=== PATIENT | male | born 1985 | race Two or more races ===

== ENCOUNTER 2024-04-14 20:36 | Emergency (ER) | payer OTHER ==
[~2024-04-14] VITALS: Ht 177.8 cm; Wt 77.1 kg
[2024-04-14 22:41] VITALS: BP 110/73; PULSE 102; RESP 18; TEMP 98.5; O2SAT 100
[2024-04-14] MEDS ORDERED: ACET500T58 PO (22:46)
[2024-04-14] MEDS ORDERED: BACDST PO (22:46)
--- NOTE | 2024-04-14 22:46 | ED.PDOC ---
History of Present Illness(SKN HPI Comments 38 YEAR OLD MALE PRESENTS TO ER FOR WOUND CHECK. PATIENT REPORTS HE STARTED EXPERIENCING REDNESS/PAIN/SWELLING TO RIGHT LOWER BUTTOCK EIGHT DAYS AGO WITH ASSOCIATED INTERMITTENT BLOODY DRAINAGE TO THIS REGION X FOUR DAYS AND PRESENTS TO ER TODAY FOR WOUND CHECK. 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 DENIES ANY CURRENT PAIN. PATIENT PRESENTS TO ER AMBULATORY ON ARRIVAL, WITH STEADY GAIT, IN NO DISTRESS. DENIES FEVER, BODY ACHES, CHILLS, NIGHT SWEATS, ABDOMINAL/PELVIC PAIN, CHANGES IN BM OR ANY FURTHER SYMPTOMS/COMPLAINTS Chief Complaint: Abscess Time Seen by MD: 20:54 Primary Care Provider: UNKNOWN History of Present Illness: Nurses Notes, Medications, Allergies Allergies: Coded Allergies: NO KNOWN ALLERGIES (Unverified , 04/14/24) Home Meds Active Scripts Acetaminophen (Acetaminophen) 500 Mg Tab, 500 MG PO Q4HPRN, #30 TAB 0 Refills Prov:BRANDAN PATEL 04/14/24 Sulfamethoxazole W/Trimethopri (Bactrim Ds Tablet) 1 Tab Tb, 1 TAB PO BID for 7 Days, #14 TAB 0 Refills Prov:BRANDAN PATEL 04/14/24 Information Source: Patient Mode of Arrival: Ambulatory Tetanus: UTD Past Medical History PAST MEDICAL HISTORY: Denies Surgical History (Other): LEFT LEG SURGERY RIGHT HAND SURGERY Family History Family History: Unknown Social History Smoker: Non-Smoker Alcohol: Denies ETOH Use Drugs: Marijuana Lives In: Home Constitutional: denies: chills, diaphoresis, fatigue, fever, malaise, sweats, weakness, others EENTM: denies: blurred vision, double vision, ear bleeding, ear discharge, ear drainage, ear pain, ear ringing, eye pain, eye redness, hearing loss, mouth pain, mouth swelling, nasal discharge, nose bleeding, nose congestion, nose pain, photophobia, tearing, throat pain, throat swelling, voice changes, others Respiratory: denies: cough, hemoptysis, orthopnea, SOB at rest, shortness of breath, SOB with excertion, stridor, wheezing, others Cardiovascular: denies: chest pain, dizzy spells, diaphoresis, Dyspnea on exertion, edema, irregular heart beat, left arm pain, lightheadedness, palpitations, PND, syncope, others Gastrointestinal: denies: abdomen distended, abdominal pain, blood streaked bowels, constipated, diarrhea, dysphagia, difficulty swallowing, hematemesis, melena, nausea, poor appetite, poor fluid intake, rectal bleeding, rectal pain, vomiting, others Genitourinary: denies: burning, dysuria, flank pain, frequency, hematuria, incontinence, penile discharge, penile sore, pain, testicle pain, testicle swelling, urgency, others Neurological: denies: dizziness, fainting, headache, left sided numbness, left sided weakness, numbness, paresthesia, pre-existing deficit, right sided numbness, right sided weakness, seizure, speech problems, tingling, tremors, weakness, others Musculoskeletal: denies: back pain, gout, joint pain, joint swelling, muscle pain, muscle stiffness, neck pain, others Integumetry: reports: others ( STATED IN HPI) Allergic/Immunocompromised: denies: Difficulty Healing, Frequent Infections, Hives, Itching, others Hematologic/Lymphatic: denies: anemia, blood clots, easy bleeding, easy bruising, swollen glands, others Endocrine: denies: excessive hunger, excessive sweating, excessive thirst, excessive urination, flushing, intolerance to cold, intolerance to heat, unexplained weight gain, unexplained weight loss, others Psychiatric: denies: anxiety, bipolar disorder, depression, hopeless, panic disorder, schizophrenia, sleepless, suicidal, others Physical Exam General Appearance: No Apparent Distress HEENT: PERRL/EOMI Neck: Full Range of Motion, Non-Tender, Normal Respiratory: Chest Non-Tender, Lungs Clear, No Accessory Muscle Use, No Respiratory Distress, Normal Breath Sounds Cardiovascular: No Murmur, No Gallop, Regular Rate/Rhythm Breast Exam: Deferred Gastrointestinal: Non Tender, No Pulsatile Mass, Soft Genitalia: Deferred Pelvic: Deferred Rectal: Deferred Extremities: Normal capillary refill, Normal range of motion Neurologic: Alert, lamina searcher II-XII nml as Tested, No Motor Deficits, Normal Affect, Normal Mood, No Sensory Deficits Cerebellar Function: Normal Reflexes: Normal Skin: Dry, Warm Peripheral Pulses: 2+ femoral (R), 2+ femoral (L) Lymphatic: No Adenopathy Was a procedure done? Was a procedure done?: No Sedation Sedation?: No Images 1 - MILD SWELLING/ERYTHEMA/TTP CENTRALIZED TO RIGHT LOWER BUTTOCK WITHOUT DRAINAGE. NO FLUCTUANCE NOTED. GAIT INTACT WITHOUT ABNORMALITY Differential Diagnosis (INTG) Differential Diagnosis: Abscess Differential Diagnosis: Abrasion Differential Diagnosis: Puncture Wound, Retained Foreign Body X-Ray, Labs, Meds, VS Vital Signs Date Time Temp Pulse Resp B/P (MAP) Pulse Ox O2 Delivery O2 Flow Rate FiO2 04/14/24 22:41 102 18 100 Room Air 04/14/24 22:41 98.5 102 18 110/73 (85) 100 98.5 04/14/24 20:45 98.5 102 18 110/73 (85) 100 ROCEPHIN 1 G IM ORDERED WOUND CARE/CLEANING DISCUSSED AND ADVISED ADVISED TO FOLLOW UP IN FOUR DAYS FOR WOUND CHECK ADVISED TO FOLLOW UP WITH PCP IN 1-2 DAYS PATIENT VERBALIZED UNDERSTANDING AND AGREEABLE WITH CURRENT PLAN OF CARE ADVISED TO RETURN TO ER IMMEDIATELY IF SYMPTOMS WORSEN Time of 1ST Reevaluation: 22:24 Reevaluation 1ST: N/A Patient Education/Counseling: Diagnosis, Treatment, Prognosis, Need For Follow Up Family Education/Counseling: No Family Present Departure 1 Departure Time of Disposition: 22:42 Impression: Primary Impression: Cellulitis of right buttock Disposition: 01 HOME / SELF CARE / HOMELESS Condition: Stable e-Prescriptions Acetaminophen (Acetaminophen) 500 Mg Tab 500 MG PO Q4HPRN, #30 TAB 0 Refills Prov: BRANDAN PATEL 04/14/24 Sulfamethoxazole W/Trimethopri (Bactrim Ds Tablet) 1 Tab Tb 1 TAB PO BID for 7 Days, #14 TAB 0 Refills Prov: BRANDAN PATEL 04/14/24 Discharged With: Self Critical Care Note Critical Care Time?: No Stability Stability form required: No Heart Score Heart Score: Heart Score Response (Comments) Value History N/A 0 EKG N/A 0 Age N/A 0 Risk Factors N/A 0 Troponin N/A 0 Total 0 BRANDAN PATEL Apr 14, 2024 22:46
[2024-04-14] MEDS: cefTRIAXone SOD 1,000 MG VL IM ONE (22:55)
== END 2024-04-14 23:02 | disposition home or self-care (01) ==
LOC: ER 20:36
DX: L03.317 Cellulitis of buttock (principal); Z98.890 Other specified postprocedural states; Z48.00 Encounter for change or removal of nonsurgical wound dressing
CPT/HCPCS: 96372; 99283; J0696